=== PATIENT | female | born 1995 ===

== ENCOUNTER 2024-06-28 09:07 | Outpatient (AMB) | payer SELFPAY ==
--- NOTE | 2024-06-28 09:07 | PD.RESCLINIC ---
Allergies/Meds Allergies & Medications Allergies No Known Allergies Allergy (Verified 06/28/24 09:07) Medication Reconciliation No Known Home Medications 06/28/24 [History Confirmed 06/28/24] JAMES Intake Visit Data Collection New Patient or Established: New Patient (never been to [facility]) Seen by Clinical Staff ONLY (RN/JAMES): No Pain Present Currently: No Pain scale:: 0 Pain Scale Used: Morales-Omer/Numerical Environmental Services Attendant Required: No PCP or OBGYN visit in last 3 months: No Hx Now: No Do You Feel Safe at Home: Yes Authorities Contacted: N/A Smoking Status Smoking Status: Never smoker For Televisit only Telemed Video/Phone Visit: Yes Verbal consent obtained for Telemed visit?: Yes Verbal Consent witness name: HUGO HIDALGO MA Telemed Video/Phone visit w/Clinical Staff: 21-30 min Immunization / Flu Flu Vaccine in the Last 12 Months: No Flu Vaccine Exclusion Criteria: No Exclusion Criteria Past Medical History Social History SMOKING STATUS: Smoking status: Never smoker Patient Portal Questionaires Social History Tobacco History Smoking Status: Never smoker Domestic Abuse History Do You Feel Safe at Home: Yes Review of Systems Report any current symptoms Only answer those that you have currently: Past Medical History Past Medical History Have you ever been diagnosed with any of the following: History of Present Illness HPI Narrative 29 y/o female with no pertinent PMHx calls for a telehealth visit for evaluation of generalized weakness, and TB screening. Pt reports that she has been feeling tired more than usual and thinks she is anemic. 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 She is also requesting TB screening testing for work as well. She has no other complaints at this time. Review of Systems Review of Systems Narrative Review of Systems: Constitutional: No fever, chills, fatigue, + weakness, + fatigue HEENT: No eye pain, vision loss, ear pain, hearing loss, dysphagia, Cardiovascular: No chest pain, palpitations, edema, pain with walking Respiratory: No cough, shortness of breath, wheezing GI: No NVD, abdominal pain, constipation, blood in stool, loss of appetite, heartburn Extremities: No presence of pitting edema MSK: No back pain, joint pain, joint swelling Neuro: No dizziness, numbness, weakness, headaches, seizures, tremors Psych: No anxiety, depression Objective/Exam Narrative Physical exam: Physical exam is limited as visit was conducted virtually Assessment & Plan Diagnosis / Problem List (1) Encounter for general adult medical examination with abnormal findings: Status: Acute Assessment & Plan: Generalized weakness and fatigue Pt does report at times she has heavy periods Will require general screening Plan: 1. TSH, Lipid profile, Vitamin D, CBC, CMP, A1c (2) Encounter for screening for respiratory tuberculosis: Status: Acute Assessment & Plan: Requesting TB screening for work Plan: 1. Quantiferon-Gold TB Send out Orders: Orders Quantiferon-TB* Today Z11.1 - Encounter for screening for respiratory tuberculosis CBC Today Z00.00 - Encounter for general adult medical examination without abnormal findings Vitamin D 25 Hydroxy Total Today Z00.00 - Encounter for general adult medical examination without abnormal findings Comprehensive Metabolic Panel Today Z00.00 - Encounter for general adult medical examination without abnormal findings Thyroid Stimulating Hormone Today Z00.00 - Encounter for general adult medical examination without abnormal findings Ambulatory Hemoglobin A1C Today Z00.00 - Encounter for general adult medical examination without abnormal findings Lipid Panel Today Z00.00 - Encounter for general adult medical examination without abnormal findings Office Procedures [facility] Level of Care Nursing/Assessment Patient Status: Initial/New Patient Nursing Assessment/Reassessment: Medication Reconciliation and Update PMH in EMR Coordination of Care: Complex Care and Chronic Disease 1-5, Consent,records obtained, informed consent, Education Simp Pt/Fam and Staff clarify orders New Patient Charge New Patient Point Assignment: 1069 Telehealth Telemed Phone/Video with patient at home & Dr,PA,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
== END 2024-06-28 09:23 | disposition home or self-care (01) ==
LOC: HODAHC 09:07
PROVIDERS: Supervising Provider Internal Medicine
DX: Z11.1 Encounter for screening for respiratory tuberculosis (principal); R53.1 Weakness; R53.83 Other fatigue
CPT/HCPCS: 99212; G0463